=== PATIENT | male | born 1960 | race Caucasian/White ===

== ENCOUNTER 2022-04-18 06:13 | Day surgery (SDC) | payer MEDICAID ==
[~2022-04-18] VITALS: Ht 170.2 cm; Wt 58.1 kg
[~2022-04-18 06:13] MED LIST: LEVO75 PO; MELA5TAB40 PO
[2022-04-18 06:41] LABS: COVID AG,FIA SOURCE NASOPHARYNGEAL
[2022-04-18] MEDS ORDERED: SODIUM CHLORIDE 0.9% 1,000 ML ONE (06:54)
[2022-04-18] MEDS ORDERED: SODIUM CHLORIDE 0.9% 1,000 ML IV ONE (07:00)
[2022-04-18] MEDS ORDERED: MIDAZOLAM HCL 5 MG/ML VIAL ONE (08:13)
[2022-04-18] MEDS ORDERED: FentaNYL CITRATE PF 100 MCG/2 ML VIAL ONE (08:13)
[2022-04-18] MEDS ORDERED: SODIUM CHLORIDE 0.9% 10 ML ONE (08:15)
[2022-04-18] MEDS ORDERED: MethylPREDNISolone SOD SUCC 125 MG/2 ML VIAL ONE (09:14)
[2022-04-18] MEDS ORDERED: MethylPREDNISolone SOD SUCC 125 MG/2 ML VIAL IVP ONE (09:15)
[2022-04-18] MEDS ORDERED: OXYGEN THERAPY IH SCH (20:00)
== END 2022-04-18 10:45 | disposition home or self-care (01) ==
LOC: SURGERY 06:13
PROVIDERS: ATTEND Internal Medicine Critical Care Medicine
DX: J38.4 Edema of larynx (principal); B37.0 Candidal stomatitis; Z79.899 Other long term (current) drug therapy; Z98.890 Other specified postprocedural states
CPT/HCPCS: 31623; 31624; 71045; 87015; 87070; 87101; 87206; 87220; 87426; 88112; 88305; 88312; C9803; J2250; J2930; J3010; J7030